=== PATIENT | female | born 1990 | race Hispanic/Latino ===

== ENCOUNTER 2018-03-01 10:39 | Emergency (ER) | payer OTHER ==
[~2018-03-01] VITALS: Ht 157.5 cm; Wt 56.5 kg
[~2018-03-01 10:39] MED LIST: FERR SULFATE325 MG PO; LORTAB 7.57.5 MG PO; PRENATABS OR
[2018-03-01 11:22] LABS: URINE BILIRUBIN - DIPSTICK NEGATIVE (NEGATIVE); URINE BLOOD DIPSTICK LARGE (NEGATIVE); URINE COLOR YELLOW; URINE GLUCOSE - DIPSTICK NEGATIVE (NEGATIVE); URINE KETONE NEGATIVE (NEGATIVE); URINE LEUK ESTERASE NEGATIVE (Negative); URINE NITRITE - DIPSTICK NEGATIVE (Negative); URINE PH 5.5 (4.5-8.0); URINE PROTEIN - DIPSTICK NEGATIVE (NEG-TRACE); URINE SPECIFIC GRAVITY >=1.030; URINE UROBILINOGEN - DIPSTICK 0.2 E.U./dL (0.2)
[2018-03-01 11:28] LABS: URINE CLARITY SL CLOUDY
[2018-03-01 12:03] VITALS: BP 114/78
== END 2018-03-01 12:10 | disposition home or self-care (01) | DRG 103 ==
LOC: ED 10:39
DX: F07.81 Postconcussional syndrome (principal); V89.2XXA Person injured in unspecified motor-vehicle accident, traffic, initial encounter